=== PATIENT | female | born 1990 | race Caucasian/White ===

== ENCOUNTER 2019-10-14 07:11 | Emergency (ER) | payer OTHER ==
[~2019-10-14] VITALS: Ht 157.5 cm; Wt 120.2 kg
--- NOTE | 2019-10-14 07:23 | NUR ---
PT IN ROOM. PROVIDER AT BEDSIDE. PT C/O INCREASED BLEEDING. PT REPORTS 2+ TAMPONS AN HOUR. PT REPORTS NOT TAKING CONTROL FOR 5 MONTHS AND BLEEDING BEING THEN. PT REPORTS RESTARTING CONTROL 3 WEEKS AGO. DENIES POSSIBLITY OF BEING .
[2019-10-14] MEDS ORDERED: ONDANSETRON ODT 4 MG PO ONE (07:30)
[2019-10-14] MEDS ORDERED: KETOROLAC 30 MG/1 ML IM ONE (07:30)
[2019-10-14 07:32] VITALS: BP 128/77
[2019-10-14] MEDS ORDERED: ONDANSETRON ODT 8 MG ONE (07:40)
[2019-10-14] MEDS ORDERED: KETOROLAC 30 MG/1 ML ONE (07:40)
--- NOTE | 2019-10-14 07:43 | NUR ---
LAB AT BEDSIDE. MEDICATED PER EMAR
--- NOTE | 2019-10-14 07:54 | NUR ---
PT OUT OF ROOM TO U/S
[2019-10-14 07:59] LABS: BASOPHILS # (AUTO) 0.05 x10^3/uL (0-0.1); BASOPHILS % (AUTO) 1 % (0-1); EOSINOPHILS # (AUTO) 0.31 x10^3/uL (0-0.4); EOSINOPHILS % (AUTO) 5 % (1-7); LYMPHOCYTES # (AUTO) 2.14 x10^3/uL (1-3.4); LYMPHOCYTES % (AUTO) 31 % (22-44); MD NO; MEAN CORPUSCULAR HEMOGLOBIN 29.5 pg (27.0-34.8); MEAN CORPUSCULAR HGB CONC 32.9 g/dL (32.4-35.8); MEAN CORPUSCULAR VOLUME 89.4 fL (80-100); MEAN PLATELET VOLUME 8.9 fL (7.4-10.4); MONOCYTES # (AUTO) 0.49 x10^3/uL (0.2-0.8); MONOCYTES % (AUTO) 7 % (2-9); NEUTROPHILS % (AUTO) 57 % (42-75); PLATELET COUNT 319 x10^3/uL (130-400); RED BLOOD COUNT 4.33 x10^6/uL (3.82-5.3); RED CELL DISTRIBUTION WIDTH 14.7 % (9.6-15.2)
[2019-10-14 08:10] LABS: ALBUMIN 3.1 g/dL (3.4-5.0); ANION GAP 7 mmol/L (5-15); CALCIUM 7.9 mg/dL (8.5-10.1); CHLORIDE 113 mmol/L (98-107); CREATININE 0.72 mg/dL (0.55-1.02)
--- NOTE | 2019-10-14 08:56 | NUR ---
PROVIDER AT BEDSIDE DISCUSSING IMAGING RESULTS
== END 2019-10-14 09:17 | disposition home or self-care (01) ==
LOC: ED 08:42
DX: N93.8 Other specified abnormal uterine and vaginal bleeding (principal)
CPT/HCPCS: 36415; 76830; 80048; 82040; 84703; 85025; 96372; 99284; J1885; Q0162